=== PATIENT | female | born 1975 | race Caucasian/White ===

== ENCOUNTER → 2018-09-03 | Outpatient (CLI) | payer OTHER ==
[~2018-09-03] MED LIST: AMOXICILLIN500 M2 PO; AUGMENTIN 875875 MG PO; CEFUROXIME AXE500 MG PO; COMPAZINE10 MG PO; DIFLUCAN150 MG PO; EES400 MG PO; FLAGYL500 MG PO; IBU-8800 MG PO; LEVAQUIN750 M1 PO; LOPRESSOR25 MG PO; METHYLPRED-DP4 MG PO; NICOTINE T21 MG/24 H TD; NKHM; OXYGEN NAS; PHENERGAN25 M1 PO; PREDNISONE10 MG PO; PREDNISONE20 M1 PO; PREDNISONE50 MG PO; PROAIR HFA8.5 GM INH; SYMBICORT1 AE1 INH; ZANTAC150 MG PO; ZITHROMAX250 MG PO
== END | disposition home or self-care (01) ==
LOC: RAD 11:39
DX: J40 Bronchitis, not specified as acute or chronic (principal); R50.9 Fever, unspecified

== ENCOUNTER 2020-08-26 17:04 | Emergency (ER) | payer OTHER ==
[~2020-08-26] VITALS: Ht 165.1 cm; Wt 90.7 kg
[2020-08-26] MEDS ORDERED: IBUPROFEN600 MG PO (19:33)
== END 2020-08-26 19:50 | disposition home or self-care (01) ==
LOC: ED 17:04
DX: M79.672 Pain in left foot (principal); F17.200 Nicotine dependence, unspecified, uncomplicated; Z79.899 Other long term (current) drug therapy

== ENCOUNTER 2020-10-16 09:08 | Emergency (ER) | payer OTHER ==
[~2020-10-16] VITALS: Ht 165.1 cm; Wt 85.7 kg
[~2020-10-16 09:08] MED LIST changes: +IBUPROFEN600 MG PO
[2020-10-16 09:42] LABS: BASO # 0.1 10*3/uL (0.0-0.1); BASO % 0.6 % (0.0-1.0); HEMATOCRIT 49.2 % (37.0-47.0); LYMPH % 12.5 % (27.0-41.0); MEAN CELL VOLUME 85.9 fl (81.0-99.0); MEAN CORPUSCULAR HGB CONC 33.7 g/dl (33.0-37.0); MEAN PLATELET VOLUME 12.2 fl (9.6-12.3); MONO # 0.3 10*3/uL (0.1-1.0); MONO % 3.1 % (3.0-9.0); NEUT # 6.7 10*3/uL (2.3-7.9); NEUT % 83.6 % (47.0-73.0); PLATELET COUNT AUTOMATED 263 10*3/uL (130-400); RED BLOOD COUNT 5.73 10*6/uL (4.10-5.10); RED CELL DISTRI WIDTH 12.6 % (0-14.5)
[2020-10-16 09:58] LABS: ALBUMIN 4.2 gm/dl (3.1-4.5); CREATININE 1.34 mg/dL (0.55-1.02); TOTAL PROTEIN 8.2 gm/dL (6.4-8.2)
[2020-10-16 10:02] LABS: POTASSIUM 3.2 mmol/L (3.5-5.1)
[2020-10-16] MEDS ORDERED: PHENERGAN25 M3 PO (17:07)
== END 2020-10-16 17:30 | disposition home or self-care (01) ==
LOC: ED 09:08
PROVIDERS: Emergency Medicine
DX: E86.0 Dehydration (principal); R11.2 Nausea with vomiting, unspecified; R10.13 Epigastric pain; Z79.899 Other long term (current) drug therapy; Z96.22 Myringotomy tube(s) status; Z90.89 Acquired absence of other organs; Z87.891 Personal history of nicotine dependence

== ENCOUNTER 2024-05-17 04:18 | Inpatient (IN) | payer OTHER ==
[2024-05-17] VITALS (11 sets, daily range): BP systolic 118–149; BP diastolic 55–95
[~2024-05-17] VITALS: Ht 170 cm; Wt 101.7 kg
[~2024-05-17 04:18] MED LIST changes: +PHENERGAN25 M3 PO
[2024-05-17] MEDS ORDERED: Albuterol Sulf/Ipratropium 3 ML VIAL NEB ONE ×2 (04:25→05:00)
[2024-05-17] MEDS ORDERED: methylPREDNISolone sod succ 125 MG VIAL IV ONE ×2 (04:25→05:15)
[2024-05-17 04:50] LABS: BASO # 0.1 10*3/uL (0.0-0.1); BASO % 0.6 % (0.0-1.0); EOS % 0.1 % (1.0-4.0); HEMATOCRIT 51.7 % (37.0-47.0); MEAN CELL VOLUME 90.1 fl (81.0-99.0); MEAN CORPUSCULAR HGB 27.2 pg (27.0-31.0); MEAN CORPUSCULAR HGB CONC 30.2 g/dl (33.0-37.0); MEAN PLATELET VOLUME 11.2 fl (9.6-12.3); MONO # 1.1 10*3/uL (0.1-1.0); MONO % 8.3 % (3.0-9.0); NEUT % 69.4 % (47.0-73.0); PLATELET COUNT AUTOMATED 210 10*3/uL (130-400); RED BLOOD COUNT 5.74 10*6/uL (4.10-5.10); VENOUS BLOOD GAS O2 SAT 85.2 % (60.0-85.0); WHITE BLOOD COUNT 12.9 10*3/uL (4.8-10.8)
[2024-05-17 05:10] LABS: BUN 11 mg/dl (9-23); CHLORIDE 98 mmol/L (98-107); POTASSIUM 3.7 mmol/L (3.4-5.1)
[2024-05-17] MEDS ORDERED: SODIUM CHLORIDE 0.9% 1,000 ML IV SCH (05:50)
[2024-05-17] MEDS ORDERED: cefTRIAXone Sodium 1 GM/10 ML SYR IV ONE (05:50)
[2024-05-17] MEDS ORDERED: AZITHROMYCIN 250 ML IV ONE (05:50)
[2024-05-17] MEDS ORDERED: SPIRIVA RESPIMAT4 GM INH (05:51)
[2024-05-17] MEDS ORDERED: BUDESONIDE-FO10.2 G1 INH (05:52)
[2024-05-17] MEDS ORDERED: ACETAMINOPHEN 325 MG TAB PO PRN (07:35)
[2024-05-17] MEDS ORDERED: Ondansetron Hydrochloride 4 MG/2 ML VIAL IV PRN (07:35)
[2024-05-17] MEDS ORDERED: Albuterol Sulf/Ipratropium 3 ML VIAL NEB SCH (07:40)
[2024-05-17] MEDS ORDERED: SODIUM CHLORIDE 0.9% 100 ML BAG IV ONE (07:40)
[2024-05-17] MEDS ORDERED: IOHEXOL 350 MG/ML 100 ML VIAL IV ONE (07:40)
[2024-05-17 09:27] LABS: ABG BASE EXCESS 1.3 mmol/L (-2.0-3.0); ABG O2 SATURATION 86.6 % (94.0-98.0); ARTERIAL BLOOD GAS PH 7.311 (7.350-7.450); ARTERIAL BLOOD GAS PO2 55.4 mmHg (83.0-108.0)
[2024-05-17] MEDS ORDERED: Enoxaparin Sodium 40 MG/0.4 ML SYR SC SCH (10:00)
[2024-05-17] MEDS ORDERED: GUAIFENESIN 600 MG TAB ER PO SCH ×2 (10:00→22:00)
[2024-05-17] MEDS ORDERED: methylPREDNISolone sod succ 40 MG VIAL IV SCH (12:00)
[2024-05-17 16:09] LABS: BILIRUBIN Negative (Negative); BLOOD Negative (Negative); CLARITY Clear (Clear); COLOR Yellow (Yellow); GLUCOSE Negative (Negative); KETONE Negative (Negative); LEUKO ESTERASE Negative (Negative); NITRITE Negative (Negative); PH 5.5 (4.5-8.0); SPECIFIC GRAVITY >= 1.030 (1.001-1.030); UROBILINOGEN 0.2 E.U./dl (0.0-1.0)
[2024-05-17 16:22] LABS: BACTERIA 1+; RBC 0-2 rbc/hpf (0-2)
[2024-05-17 16:23] LABS: COARSE GRANULAR CAST 0-2
[2024-05-17] MEDS ORDERED: Nicotine 21 MG PATCH T SCH (18:20)
[2024-05-17] MEDS ORDERED: MENTHOL USP 1 LOZ LOZENGE PO SCH (23:55)
[2024-05-18] VITALS: BP 139/81
[2024-05-18] MEDS ORDERED: MENTHOL USP 1 LOZ LOZENGE PO PRN (00:50)
[2024-05-18] MEDS ORDERED: cefTRIAXone Sodium 1 GM,IV 1 EA in SYRINGE INFUSION 10 ML IV SCH (06:00)
[2024-05-18 06:47] LABS: HEMATOCRIT 48.2 % (37.0-47.0); MEAN CELL VOLUME 88.3 fl (81.0-99.0); MEAN CORPUSCULAR HGB 27.1 pg (27.0-31.0); MEAN CORPUSCULAR HGB CONC 30.7 g/dl (33.0-37.0); MEAN PLATELET VOLUME 11.6 fl (9.6-12.3); PLATELET COUNT AUTOMATED 199 10*3/uL (130-400); RED BLOOD COUNT 5.46 10*6/uL (4.10-5.10); RED CELL DISTRI WIDTH 13.9 % (0-14.5); WHITE BLOOD COUNT 8.5 10*3/uL (4.8-10.8)
[2024-05-18 06:51] LABS: MANUAL DIFF REFLEX YES
[2024-05-18 07:18] LABS: VITAMIN D, 25-HYDROXY 18.7 ng/mL (30-100)
[2024-05-18 07:19] LABS: ALKALINE PHOSPHATASE 80 U/L (46-116); BUN 17 mg/dl (9-23); CHLORIDE 99 mmol/L (98-107); CHOLESTEROL 163 mg/dL (<200); LDL CHOLESTEROL 101 mg/dL (9-159); POTASSIUM 4.5 mmol/L (3.4-5.1); SGPT/ALT 17 U/L (5-49); TOTAL PROTEIN 7.4 gm/dL (6.0-8.0); TRIGLYCERIDES 103 mg/dl (<150)
[2024-05-18 07:20] LABS: ATYPICAL LYMPHS 2 % (0-0); BURR CELLS FEW; PLATELET SUFFICIENCY NORMAL (NORMAL); POLYCHROMASIA SLIGHT; TOTAL CELLS COUNTED 100 #CELLS
[2024-05-18 07:30] LABS: ABG BASE EXCESS 2.9 mmol/L (-2.0-3.0); ABG O2 SATURATION 96.3 % (94.0-98.0); ARTERIAL BLOOD GAS PH 7.318 (7.350-7.450); ARTERIAL BLOOD GAS PO2 84.9 mmHg (83.0-108.0)
[2024-05-18 08:00] VITALS: BP 133/39
[2024-05-18] MEDS ORDERED: AZITHROMYCIN 250 ML IV SCH (08:00)
[2024-05-18] MEDS ORDERED: Vitamin D 1,000 IU TAB (25 MCG) PO SCH (10:00)
[2024-05-18 12:00] VITALS: BP 131/76
[2024-05-18 16:00] VITALS: BP 119/73
[2024-05-18 20:00] VITALS: BP 129/79
[2024-05-19] VITALS: BP 132/77
[2024-05-19 06:43] LABS: HEMATOCRIT 47.3 % (37.0-47.0); MEAN CELL VOLUME 89.8 fl (81.0-99.0); MEAN CORPUSCULAR HGB 27.5 pg (27.0-31.0); MEAN CORPUSCULAR HGB CONC 30.7 g/dl (33.0-37.0); MEAN PLATELET VOLUME 11.5 fl (9.6-12.3); PLATELET COUNT AUTOMATED 236 10*3/uL (130-400); RED BLOOD COUNT 5.27 10*6/uL (4.10-5.10); RED CELL DISTRI WIDTH 13.8 % (0-14.5); WHITE BLOOD COUNT 7.9 10*3/uL (4.8-10.8)
[2024-05-19 06:51] LABS: MANUAL DIFF REFLEX YES
[2024-05-19 07:05] LABS: BUN 19 mg/dl (9-23); CHLORIDE 98 mmol/L (98-107); POTASSIUM 5.2 mmol/L (3.4-5.1)
[2024-05-19 07:58] LABS: ATYPICAL LYMPHS 1 % (0-0); PLATELET SUFFICIENCY NORMAL (NORMAL); TOTAL CELLS COUNTED 100 #CELLS
[2024-05-19 08:00] VITALS: BP 128/68
[2024-05-19] MEDS ORDERED: SODIUM POLYSTYRENE SULFONATE 15 GM/60 ML BOT PO ONE (08:05)
[2024-05-19 12:00] VITALS: BP 121/57
[2024-05-19 16:00] VITALS: BP 126/63
[2024-05-19 20:00] VITALS: BP 124/74
[2024-05-19] MEDS ORDERED: PROTONIX IV40 MG PO (21:03)
[2024-05-20] VITALS: BP 123/66
[2024-05-20 06:50] LABS: BUN 20 mg/dl (9-23); CHLORIDE 99 mmol/L (98-107); POTASSIUM 4.6 mmol/L (3.4-5.1)
[2024-05-20 06:57] LABS: HEMATOCRIT 44.6 % (37.0-47.0); MEAN CELL VOLUME 90.1 fl (81.0-99.0); MEAN CORPUSCULAR HGB 26.9 pg (27.0-31.0); MEAN CORPUSCULAR HGB CONC 29.8 g/dl (33.0-37.0); MEAN PLATELET VOLUME 11.6 fl (9.6-12.3); PLATELET COUNT AUTOMATED 254 10*3/uL (130-400); RED BLOOD COUNT 4.95 10*6/uL (4.10-5.10); RED CELL DISTRI WIDTH 13.9 % (0-14.5); WHITE BLOOD COUNT 7.3 10*3/uL (4.8-10.8)
[2024-05-20 06:59] LABS: MANUAL DIFF REFLEX YES
[2024-05-20 07:53] LABS: ATYPICAL LYMPHS 2 % (0-0); PLATELET SUFFICIENCY NORMAL (NORMAL); TOTAL CELLS COUNTED 100 #CELLS
[2024-05-20 08:00] VITALS: BP 105/59
[2024-05-20] MEDS ORDERED: Pantoprazole Sodium 40 MG TAB PO SCH (10:00)
[2024-05-20] MEDS ORDERED: SODIUM CHLORIDE Nasal 44 ml bottle NAS PRN (10:50)
[2024-05-20 12:00] VITALS: BP 134/77
[2024-05-20 14:10] LABS: ABG O2 SATURATION 96.2 % (94.0-98.0); ARTERIAL BLOOD GAS PH 7.358 (7.350-7.450); ARTERIAL BLOOD GAS PO2 79.6 mmHg (83.0-108.0)
[2024-05-20 14:11] LABS: ABG BASE EXCESS 4.1 mmol/L (-2.0-3.0)
[2024-05-20 16:00] VITALS: BP 113/74
[2024-05-20 20:00] VITALS: BP 130/68
[2024-05-21] VITALS: BP 139/68
[2024-05-21 07:14] LABS: BUN 20 mg/dl (9-23); CHLORIDE 99 mmol/L (98-107); POTASSIUM 4.9 mmol/L (3.4-5.1)
[2024-05-21 08:00] VITALS: BP 120/68
[2024-05-21 12:00] VITALS: BP 129/69
[2024-05-21 16:00] VITALS: BP 121/74
[2024-05-21 20:00] VITALS: BP 127/73
[2024-05-22] VITALS: BP 123/72; BP 149/91
[2024-05-22 05:46] LABS: BUN 21 mg/dl (9-23); CHLORIDE 99 mmol/L (98-107); POTASSIUM 4.8 mmol/L (3.4-5.1)
[2024-05-22 06:15] LABS: BASO % 0.2 % (0.0-1.0); HEMATOCRIT 44.8 % (37.0-47.0); MEAN CELL VOLUME 90.3 fl (81.0-99.0); MEAN CORPUSCULAR HGB 27.6 pg (27.0-31.0); MEAN CORPUSCULAR HGB CONC 30.6 g/dl (33.0-37.0); MEAN PLATELET VOLUME 11.1 fl (9.6-12.3); MONO # 0.3 10*3/uL (0.1-1.0); MONO % 3.5 % (3.0-9.0); NEUT # 7.1 10*3/uL (2.3-7.9); NEUT % 81.2 % (47.0-73.0); PLATELET COUNT AUTOMATED 301 10*3/uL (130-400); RED BLOOD COUNT 4.96 10*6/uL (4.10-5.10); RED CELL DISTRI WIDTH 14.1 % (0-14.5); WHITE BLOOD COUNT 8.8 10*3/uL (4.8-10.8)
[2024-05-22 08:00] VITALS: BP 122/68
[2024-05-22 12:00] VITALS: BP 127/62
[2024-05-22 16:00] VITALS: BP 127/71
[2024-05-22 20:00] VITALS: BP 113/71
[2024-05-23] VITALS: BP 118/74
[2024-05-23 07:47] LABS: BASO % 0.3 % (0.0-1.0); MEAN CELL VOLUME 88.5 fl (81.0-99.0); MEAN CORPUSCULAR HGB 26.9 pg (27.0-31.0); MEAN CORPUSCULAR HGB CONC 30.4 g/dl (33.0-37.0); MEAN PLATELET VOLUME 10.5 fl (9.6-12.3); MONO # 0.4 10*3/uL (0.1-1.0); MONO % 4.1 % (3.0-9.0); NEUT # 7.8 10*3/uL (2.3-7.9); NEUT % 79.7 % (47.0-73.0); PLATELET COUNT AUTOMATED 364 10*3/uL (130-400); RED CELL DISTRI WIDTH 14.1 % (0-14.5); WHITE BLOOD COUNT 9.8 10*3/uL (4.8-10.8)
[2024-05-23 08:00] VITALS: BP 117/73
[2024-05-23 08:24] LABS: BUN 21 mg/dl (9-23); CHLORIDE 98 mmol/L (98-107); POTASSIUM 4.5 mmol/L (3.4-5.1)
[2024-05-23 12:00] VITALS: BP 138/98
[2024-05-23 16:00] VITALS: BP 128/83
[2024-05-23] MEDS ORDERED: IBUPROFEN 800 MG TAB PO ONE (19:50)
[2024-05-23 20:00] VITALS: BP 128/32
[2024-05-24] VITALS: BP 121/57
[2024-05-24 07:16] LABS: BASO % 0.2 % (0.0-1.0); HEMATOCRIT 43.8 % (37.0-47.0); MEAN CELL VOLUME 87.4 fl (81.0-99.0); MEAN CORPUSCULAR HGB 27.9 pg (27.0-31.0); MEAN PLATELET VOLUME 10.6 fl (9.6-12.3); MONO # 0.7 10*3/uL (0.1-1.0); MONO % 5.1 % (3.0-9.0); NEUT # 10.5 10*3/uL (2.3-7.9); NEUT % 81.6 % (47.0-73.0); PLATELET COUNT AUTOMATED 358 10*3/uL (130-400); RED BLOOD COUNT 5.01 10*6/uL (4.10-5.10); RED CELL DISTRI WIDTH 14.4 % (0-14.5); WHITE BLOOD COUNT 12.9 10*3/uL (4.8-10.8)
[2024-05-24 07:37] LABS: BUN 22 mg/dl (9-23); CHLORIDE 99 mmol/L (98-107); POTASSIUM 4.8 mmol/L (3.4-5.1)
[2024-05-24 08:00] VITALS: BP 127/76
[2024-05-24 12:00] VITALS: BP 126/64
[2024-05-24 16:00] VITALS: BP 130/59
[2024-05-24 20:00] VITALS: BP 128/75
[2024-05-25] VITALS: BP 121/81; BP 127/60
[2024-05-25 04:00] VITALS: BP 127/60
[2024-05-25 05:25] LABS: BUN 22 mg/dl (9-23); CHLORIDE 99 mmol/L (98-107); POTASSIUM 4.9 mmol/L (3.4-5.1)
[2024-05-25 06:05] LABS: HEMATOCRIT 44.2 % (37.0-47.0); MEAN CELL VOLUME 89.1 fl (81.0-99.0); MEAN CORPUSCULAR HGB 27.4 pg (27.0-31.0); MEAN CORPUSCULAR HGB CONC 30.8 g/dl (33.0-37.0); PLATELET COUNT AUTOMATED 354 10*3/uL (130-400); RED BLOOD COUNT 4.96 10*6/uL (4.10-5.10); RED CELL DISTRI WIDTH 14.6 % (0-14.5); WHITE BLOOD COUNT 16.4 10*3/uL (4.8-10.8)
[2024-05-25 06:15] LABS: MANUAL DIFF REFLEX YES
[2024-05-25 07:25] LABS: PLATELET SUFFICIENCY NORMAL (NORMAL); TOTAL CELLS COUNTED 100 #CELLS
[2024-05-25 08:00] VITALS: BP 120/77
[2024-05-25 12:00] VITALS: BP 153/83
[2024-05-25] MEDS ORDERED: cefTRIAXone Sodium 1 GM in SYRINGE INFUSION 10 ML IV SCH (12:00)
[2024-05-25] MEDS ORDERED: AZITHROMYCIN 250 ML IV SCH (13:00)
[2024-05-25 16:00] VITALS: BP 141/82
[2024-05-25 20:00] VITALS: BP 125/79
[2024-05-25] MEDS ORDERED: GUAIFENESIN/DEXTROMETHORPHAN 10 ML UDC PO ONE (21:50)
[2024-05-25] MEDS ORDERED: SODIUM CHLORIDE 0.9% 100 ML BAG IV ONE (23:35)
[2024-05-25] MEDS ORDERED: IOHEXOL 350 MG/ML 100 ML VIAL IV ONE (23:35)
[2024-05-26] VITALS: BP 109/63; BP 125/65
[2024-05-26 08:00] VITALS: BP 122/78
[2024-05-26 12:00] VITALS: BP 150/84
[2024-05-26 16:00] VITALS: BP 128/80
[2024-05-26] MEDS ORDERED: GUAIFENESIN/DEXTROMETHORPHAN 10 ML UDC PO PRN (19:50)
[2024-05-26 20:00] VITALS: BP 137/85
[2024-05-27] VITALS: BP 121/69
[2024-05-27 07:06] LABS: BASO % 0.3 % (0.0-1.0); HEMATOCRIT 44.7 % (37.0-47.0); MEAN CELL VOLUME 89.4 fl (81.0-99.0); MEAN CORPUSCULAR HGB 27.6 pg (27.0-31.0); MEAN CORPUSCULAR HGB CONC 30.9 g/dl (33.0-37.0); MEAN PLATELET VOLUME 10.3 fl (9.6-12.3); MONO # 0.9 10*3/uL (0.1-1.0); NEUT # 7.1 10*3/uL (2.3-7.9); NEUT % 79.6 % (47.0-73.0); PLATELET COUNT AUTOMATED 310 10*3/uL (130-400); RED CELL DISTRI WIDTH 14.9 % (0-14.5)
[2024-05-27 08:00] VITALS: BP 132/84
[2024-05-27 08:01] LABS: BUN 25 mg/dl (9-23); CHLORIDE 97 mmol/L (98-107); POTASSIUM 4.8 mmol/L (3.4-5.1)
[2024-05-27 11:55] VITALS: BP 132/82
[2024-05-27 16:00] VITALS: BP 146/69
[2024-05-27 20:00] VITALS: BP 111/64
[2024-05-27] MEDS ORDERED: CLAVULANATE PO SCH (22:00)
[2024-05-27] MEDS ORDERED: AMOXICILLIN PO SCH (22:00)
[2024-05-28] VITALS: BP 123/90
[2024-05-28 07:09] LABS: BASO % 0.3 % (0.0-1.0); HEMATOCRIT 43.4 % (37.0-47.0); MEAN CELL VOLUME 88.6 fl (81.0-99.0); MEAN CORPUSCULAR HGB 27.3 pg (27.0-31.0); MEAN CORPUSCULAR HGB CONC 30.9 g/dl (33.0-37.0); MEAN PLATELET VOLUME 10.5 fl (9.6-12.3); MONO # 0.5 10*3/uL (0.1-1.0); NEUT # 6.6 10*3/uL (2.3-7.9); NEUT % 82.3 % (47.0-73.0); PLATELET COUNT AUTOMATED 293 10*3/uL (130-400); RED CELL DISTRI WIDTH 14.6 % (0-14.5)
[2024-05-28 07:38] LABS: BUN 23 mg/dl (9-23); CHLORIDE 96 mmol/L (98-107); POTASSIUM 4.7 mmol/L (3.4-5.1)
[2024-05-28 08:00] VITALS: BP 128/80
[2024-05-28] MEDS ORDERED: AUGMENTIN XR 11 EACH PO (11:21)
[2024-05-28] MEDS ORDERED: AZITHROMYCIN500 M2 PO (11:21)
[2024-05-28] MEDS ORDERED: PREDNISONE10 MG PO (11:22)
[2024-05-28] MEDS ORDERED: Vitamin D (1,000 UNI PO (11:24)
[2024-05-28] MEDS ORDERED: MUCUS RELIEF E600 MG PO (11:24)
[2024-05-28 12:00] VITALS: BP 118/53
== END 2024-05-28 14:36 | disposition home or self-care (01) | DRG 871 ==
LOC: ED 04:18 → 4E 06:50 → EDHOLD 06:50 → 4E 17:47
PROVIDERS: Internal Medicine; Internal Medicine Critical Care Medicine; Student in an Organized Health Care Education/Training Program; ADMIT Internal Medicine; ATTEND Internal Medicine
PROC: 5A0935A Assistance with Respiratory Ventilation, Less than 24 Consecutive Hours, High Flow/Velocity Cannula (ICD-10-PCS; principal; 2024-05-19)
PROC: 5A09357 Assistance with Respiratory Ventilation, Less than 24 Consecutive Hours, Continuous Positive Airway Pressure (ICD-10-PCS; 2024-05-20)
PROC: 5A0935A Assistance with Respiratory Ventilation, Less than 24 Consecutive Hours, High Flow/Velocity Cannula (ICD-10-PCS; 2024-05-20)
PROC: 5A09357 Assistance with Respiratory Ventilation, Less than 24 Consecutive Hours, Continuous Positive Airway Pressure (ICD-10-PCS; 2024-05-21)
PROC: 5A0935A Assistance with Respiratory Ventilation, Less than 24 Consecutive Hours, High Flow/Velocity Cannula (ICD-10-PCS; 2024-05-21)
PROC: 5A0935A Assistance with Respiratory Ventilation, Less than 24 Consecutive Hours, High Flow/Velocity Cannula (ICD-10-PCS; 2024-05-22)
PROC: 5A09357 Assistance with Respiratory Ventilation, Less than 24 Consecutive Hours, Continuous Positive Airway Pressure (ICD-10-PCS; 2024-05-22)
PROC: 5A09357 Assistance with Respiratory Ventilation, Less than 24 Consecutive Hours, Continuous Positive Airway Pressure (ICD-10-PCS; 2024-05-23)
PROC: 5A0935A Assistance with Respiratory Ventilation, Less than 24 Consecutive Hours, High Flow/Velocity Cannula (ICD-10-PCS; 2024-05-23)
PROC: 5A0935A Assistance with Respiratory Ventilation, Less than 24 Consecutive Hours, High Flow/Velocity Cannula (ICD-10-PCS; 2024-05-24)
PROC: 5A09357 Assistance with Respiratory Ventilation, Less than 24 Consecutive Hours, Continuous Positive Airway Pressure (ICD-10-PCS; 2024-05-25)
PROC: 5A09357 Assistance with Respiratory Ventilation, Less than 24 Consecutive Hours, Continuous Positive Airway Pressure (ICD-10-PCS; 2024-05-26)
PROC: 5A09357 Assistance with Respiratory Ventilation, Less than 24 Consecutive Hours, Continuous Positive Airway Pressure (ICD-10-PCS; 2024-05-27)
PROC: 5A09357 Assistance with Respiratory Ventilation, Less than 24 Consecutive Hours, Continuous Positive Airway Pressure (ICD-10-PCS; 2024-05-28)
DX: A41.9 Sepsis, unspecified organism (principal); J15.69 Pneumonia due to other Gram-negative bacteria; J15.9 Unspecified bacterial pneumonia; J96.01 Acute respiratory failure with hypoxia; J96.02 Acute respiratory failure with hypercapnia; Z68.45 Body mass index [BMI] 70 or greater, adult; J44.1 Chronic obstructive pulmonary disease with (acute) exacerbation; E44.0 Moderate protein-calorie malnutrition; J44.0 Chronic obstructive pulmonary disease with (acute) lower respiratory infection; J84.114 Acute interstitial pneumonitis; R65.20 Severe sepsis without septic shock; J84.89 Other specified interstitial pulmonary diseases; J45.909 Unspecified asthma, uncomplicated; R73.9 Hyperglycemia, unspecified; F17.210 Nicotine dependence, cigarettes, uncomplicated; E55.9 Vitamin D deficiency, unspecified; E66.01 Morbid (severe) obesity due to excess calories; Z20.822 Contact with and (suspected) exposure to COVID-19; Z83.3 Family history of diabetes mellitus; Z79.899 Other long term (current) drug therapy; Z68.36 Body mass index [BMI] 36.0-36.9, adult